=== PATIENT | female | born 1930 | race Caucasian/White ===

== ENCOUNTER 2018-07-10 13:33 | Inpatient (IN) | payer MEDICARE ==
[2018-07-10] MEDS ORDERED: Senokot S 8.6-50 MG TAB PO PRN (15:05)
[2018-07-10] MEDS ORDERED: Ondansetron PF 4 MG/2 ML Vial IVP PRN (15:05)
[2018-07-10] MEDS ORDERED: Acetaminophen 650 MG Suppository PR PRN (15:05)
[2018-07-10] MEDS ORDERED: Guaifenesin DM 100-10/5 ML UDCUP PO PRN (15:05)
[2018-07-10] MEDS ORDERED: Sodium Chloride 0.9% 1,000 ML IV SCH (15:05)
[2018-07-10] MEDS ORDERED: Metoprolol Tartrate 5 MG/5 ML VIAL ONE (15:10)
[2018-07-10 15:14] LABS: Troponin I 0.185 ng/mL (< 0.028)
[2018-07-10] MEDS ORDERED: Diltiazem 125 MG/25 ML ONE (15:29)
[2018-07-10] MEDS ORDERED: Diltiazem 125 MG in Sodium Chloride 0.9% 100 ML IVPB SCH (15:30)
[2018-07-10] MEDS ORDERED: LEVOFLOXACIN IVPB PRN (16:00)
[2018-07-10] MEDS ORDERED: VANCOMYCIN IVPB PRN (16:00)
--- NOTE | 2018-07-10 16:21 | HP ---
REASON FOR ADMISSION: Sepsis, urinary tract infection, possible aspiration with pneumonia, left pleural effusion, possible CVA, 5 beats of nonsustained ventricular tachycardia, demand ischemia. HISTORY OF PRESENTING ILLNESS: Please note, majority of this history is obtained by talking to the patient's and daughter who are here at bedside. The patient is wearing BiPAP mask and is a bit lethargic. Per , the patient was confused this morning and became unresponsive. She also had slurred speech. This happened around 7:30 in the morning. EMS was summoned and the patient was taken to [facility]. She has had multiple workups done at [facility]. She apparently had NIH of 15 on arrival there. She was also found to be septic and hypothermic with temperatures of 94 degrees on arrival rectal. The patient has had a CT angio brain done which did not reveal any acute stroke, but has findings of hemodynamically significant stenosis of right internal carotid artery. There was also apparent occlusion of the right vertebral artery at the base of the skull with reconstitution via collaterals. There is also questionable stenosis of the left vertebral artery at the base of the skull. The basilar artery is patent. The patient also was in acute respiratory failure with hypoxia with saturations dropping down to 80% and was placed on BiPAP prior to arrival here. Here off BiPAP, the patient is saturating 96% on 2 L nasal cannula. She has been aspirating from last 2 days and was not eating much per family. The patient is not moving both eyes beyond midline to the left. at bedside mentions that she has had eye surgery on the left, namely cataract and glaucoma surgeries and she also has pterygium on the right, but as far as he knows, she was moving her eye balls both sides. PAST MEDICAL AND SURGICAL HISTORY: Oral cancer/lip cancer with prior surgery including removal of the mass with removal of all the tooth in the upper jaw with some sort of maxillary resection as well. It is unclear if her tongue was operated on during the same procedure. She has had left breast cancer with mastectomy, has a steel plate in the right wrist, hysterectomy, appendectomy, hypertension, dyslipidemia. History of pulmonary embolus and was on Eliquis in 2016. CURRENT MEDICATIONS: The patient is on; 1. Lisinopril 20 mg daily. 2. Hydrochlorothiazide 25 mg daily. 3. Lopressor extended release 25 mg daily. ALLERGIES: ALLERGIC TO PENICILLIN. PERSONAL HISTORY: Does not abuse alcohol or drugs. She does not smoke. Lives with her . FAMILY HISTORY: The patient lives with her . She has outlived all her siblings, namely 4 other siblings. She is the oldest of the 5. She has 4 daughters. Code status, DNAR. This was discussed with and her daughter who are here at bedside. REVIEW OF SYSTEMS: To the extent possible was negative. Please note, this is very limited in view of the patient's lethargy. There is no apparent cough, but has been aspirating. No chest pain or palpitation. No abdominal pain or diarrhea or nausea. No prior massive stroke with paralysis or seizure disorder. Has had skin cancers in the past. No eczema at present. The patient has had history of breast cancer and has had left-sided mastectomy in the past. No bleeding as such. She has had prior history of pulmonary edema. No history of COPD or asthma. 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 The patient has osteoarthritis and has limited mobility. She ambulates with a rolling walker. PHYSICAL EXAMINATION: GENERAL: The patient is an 87-year-old female, who is currently not in any acute distress. VITAL SIGNS: Blood pressure 144/96, pulse 120 per minute, respiratory rate 26 per minute, temperature 94.3 degrees on arrival, currently 95.2 degrees rectal, saturating 96% on 2 L nasal cannula. NECK: Supple. No elevated JVD. EYES: Pupils are irregular on the left. Has pterygium on both eyes. The patient is not able to move beyond midline to the left side, likely has hemianopsia. In the left oral cavity, the patient has had puckering of the upper lips. Has no tooth on the upper jaw and the tongue is dry likely with shortened by prior surgery. Some congestion seen in the posterior pharynx. No obvious exudates seen. CARDIOVASCULAR: S1 and S2 heard. Tachycardic. No murmur. RESPIRATORY: Air entry 1+ bilateral. Scattered rhonchi plus bilateral. ABDOMEN: Soft. Bowel sounds heard. No tenderness, rigidity, or guarding. EXTREMITIES: Right lower extremity is slightly bigger than left lower extremity. No calf tenderness. VASCULAR: Peripheral pulses 1+ bilateral. No ischemic ulcerations or gangrene. CENTRAL NERVOUS SYSTEM: The patient appears to have left hemianopsia. She is able to move all four extremities. The patient is right-handed. Has some slow drifting of right upper extremity. The patient is 87 years old and has some generalized physical deconditioning. She is able to move her both lower extremities minimally. Babinski is downgoing both sides. Gait was not tested. PSYCHIATRIC: No obvious hallucinations or delusions. LABORATORY DATA: EKG done shows atrial fibrillation with RVR at 107 beats per minute. Has Q-waves seen in V1, V2, V3, V4, and has T inversions seen globally. A prior EKG which accompanies her chart done on August 02, 2017 shows sinus bradycardia at 58 beats per minute. There is Q-waves seen in V1 and V2, but no T inversions in that EKG. CT brain done shows atrophy and chronic ischemic change. No acute intracranial findings. CT angio of brain done shows hemodynamically significant stenosis in proximal right internal carotid artery. It is more than 70% stenosis by NASCET criteria. There is also apparent occlusion of right vertebral artery at the base of the skull with reconstitution via collaterals, though there is also question of stenosis of the left vertebral artery at the base of the skull. The basilar artery is patent. Chest x-ray done shows left pleural effusion, likely right middle lobe infiltrate. White count of 17, H and H 17 and 49, platelet count 472, with 89% neutrophils, MCV is 88. PT, INR, PTT within normal limits. Potassium is 3.0, serum bicarb 23, BUN 7, creatinine 0.6, serum glucose 206. Lactic acid 3.8. Troponin I is indeterminate, peaking up to 0.18. BNP 636. Liver enzymes within normal limits. Albumin is 4.0. UA shows moderate leukocyte esterase, 21 to 50 wbc's, and 2+ bacteria. CLINICAL IMPRESSION AND PLAN: The patient will be admitted to telemetry for sepsis, pneumonia, urinary tract infection, possible cerebrovascular accident, carotid stenosis, possible aspiration, hypokalemia, nonsustained ventricular tachycardia , atrial fibrillation with rapid ventricular response. We will obtain echo with 2D Doppler for LV function. Ultrasound of both lower extremities to rule out deep vein thrombosis. She will be placed on Cardizem drip 5 mg an hour. We will also place her on Lopressor 25 mg twice daily. The patient will be kept n.p.o. except for medications until speech clears her. She will be on normal saline at 50 mL per hour. Blood, urine, and sputum cultures will be obtained. The patient will be on broad-spectrum cefepime, Levaquin, and vancomycin until cultures are back. Her overall prognosis is guarded. The patient has had prior lip surgery with oral reconstruction done as well and it is unclear if she is aspirating. We will confirm the same. Code status was discussed with the patient, the patient's and her daughter who are at bedside and they agreed for DNAR. We will obtain consultation with Dr. Fan for Pulmonology, Dr. Wahl who is correspondence representative for Neurology in view of left hemianopsia to rule out CVA and Dr. Ashley for EKG changes and indeterminate troponin. Job ID: [id number] [facility]
--- NOTE | 2018-07-10 17:13 | ULT ---
RIGHT LOWER EXTREMITY VENOUS DOPPLER ULTRASOUND: Date: 07-10-18 Comparison: None. History: Right lower extremity swelling, assess for DVT. Technique: Multiplanar grayscale sonographic imaging of the venous structures of the right lower extr emity obtained with color flow and spectral analysis. FINDINGS: The right common femoral vein and greater saphenous vein are patent. The right profunda femoral vein and femoral vein are patent. There is only compression of the right p opliteal vein with internal echogenic material consistent with deep venous thrombosis of the right po pliteal vein. There is also thrombus seen within the right posterior tibial vein. IMPRESSION: 1. Deep venous thrombosis involving the right popliteal vein with extension into the right posterior tibial vein. 2. The property coordinator reports that this information was relayed to Dr. Troy at the time of the examinati on. POS: ADRI
[2018-07-10 18:15] LABS: Troponin I 0.235 ng/mL (< 0.028)
[2018-07-10] MEDS: Potassium Chloride 20 MEQ TAB PO SCH (18:43)
[2018-07-10 19:38] LABS: Lactic Acid 2.8 mmol/L (0.5-2.2)
[2018-07-10] MEDS ORDERED: Vancomycin HCl 1 GM in Sodium Chloride 0.9% 250 ML 300 ML IVPB SCH (21:00)
[2018-07-10] MEDS ORDERED: Metoprolol Tartrate 25 MG TAB PO SCH (21:00)
[2018-07-10] MEDS ORDERED: Cefepime 1 GM in Sodium Chloride 0.9% 100 ML IVPB SCH (21:00)
[2018-07-10 22:47] LABS: Troponin I 0.307 ng/mL (< 0.028)
--- NOTE | 2018-07-11 02:49 | CON ---
DATE OF CONSULTATION: 07/10/2018 HISTORY OF PRESENT ILLNESS: This is an 87-year-old female admitted with altered mental status. She had suspected urinary tract infection. CT angiography of her head demonstrated disease in her right internal carotid artery, which I estimate to be about 70%. PAST MEDICAL HISTORY: In regards to her carotid artery is significant for oral cancer several years ago that resulted in partial tongue resection, maxillary resection, and radiation therapy. Related to this, she may have had some problems with aspiration. Hypertension, dyslipidemia, and history of pulmonary embolus. PAST SURGICAL HISTORY: Otherwise includes previous breast cancer about 8 years ago with a mastectomy, right wrist fracture, hysterectomy and appendectomy. SOCIAL HISTORY: The patient has never smoked. She does not drink. She lives at home with her and daughter. PHYSICAL EXAMINATION: GENERAL: On examination, she is resting comfortably on 2 L nasal cannula and will nod her head, but does not really respond otherwise. NECK: Skin changes of radiation therapy, as well as possible neck dissection on the left. I do not appreciate any carotid bruits. LUNGS: Clear to auscultation. CARDIAC: No murmurs. Regular rate and rhythm. ABDOMEN: Soft and nontender. EXTREMITIES: I do not appreciate any popliteal or pedal pulses, but she does have femoral pulses. She has [id number] edema in one leg. Motor function is grossly intact. At this time, the patient has about a 70% stenosis of the right internal carotid artery. She also has some vertebral artery disease. Given her radiation therapy, surgical intervention for her carotid stenosis would not be possible and she would require carotid stenting. In regards to this, I do not think she is symptomatic from her carotid artery disease and would avoid any intervention for her carotid stenosis at this time. Job ID: [id number]
[2018-07-11 03:41] LABS: #Lymphocytes 0.5 thou/uL (1.20-3.40); #Monocytes 0.7 thou/uL (0.11-0.59); #Neutrophils 7.6 thou/uL (1.40-6.50); %Eosinophils 0.1 % (0.0-10.0); %Lymphocytes 5.1 % (21.0-51.0); %Monocytes 7.8 % (0.0-10.0); %Neutrophils 86.9 % (42.0-75.0); Hemoglobin 15.5 g/dL (12.0-16.0); Mean Corpuscular HGB CONC 33.6 g/dL (32.0-36.0); Mean Corpuscular Hemoglobin 30.7 pg (27.0-31.0); Mean Corpuscular Volume 91.3 fL (78.0-98.0); Mean Platelet Volume 6.7 fL (7.4-10.4); Platelet Count 389 thou/uL (130-400); RBC Distribution Width 11.7 % (11.5-14.5); Red Blood Cell (RBC) Count 5.05 mill/uL (4.20-5.40); White Blood Cell (WBC) Count 8.8 thou/uL (4.8-10.8)
[2018-07-11 04:00] LABS: Anion Gap 16 mmol/L (10-20); BUN (Urea Nitrogen) 8 mg/dL (9.8-20.1); Calc. Creatinine Clearance 0 mL/min (70-130); Calcium 9.1 mg/dL (7.8-10.44); Carbon Dioxide 20 mmol/L (23-31); Chloride 102 mmol/L (98-107); Estimated GFR-MDRD Greater than 90; Glucose 166 mg/dL (83-110); Magnesium 1.8 mg/dL (1.6-2.6); Potassium 3.9 mmol/L (3.5-5.1); Sodium 134 mmol/L (136-145)
[2018-07-11 07:13] LABS: Troponin I 0.224 ng/mL (< 0.028)
[2018-07-11] MEDS ORDERED: Enoxaparin Sodium 40 MG/0.4 ML SYRINGE SC SCH (09:00)
[2018-07-11] MEDS ORDERED: Metoprolol Tartrate 25 MG TAB ONE (10:48)
[2018-07-11] MEDS ORDERED: Famotidine/PF 20 mg/2ml Vial ONE (10:48)
[2018-07-11] MEDS ORDERED: Potassium Chloride 20 MEQ TAB ONE (10:49)
[2018-07-11] MEDS: Famotidine/PF 20 mg/2ml Vial SLOW IVP SCH ×3 (11:00→21:56)
--- NOTE | 2018-07-11 11:13 | PDOC.PN ---
- Subjective Encounter Start Date: 07/11/18 Encounter Start Time: 10:30 Subjective: awake, no sob or palp -: no c/o chest pain, is more awake this morning -: , 2 daughters at bedside - Objective Resuscitation Status - Order Detail: 07/10/18 14:58 Resuscitation Status Routine Resuscitation Status: PRTL: Chem only Discussed with: d/w and daughter at bedside MAR Reviewed: Yes Result Diagrams: 07/11/18 03:33 07/11/18 03:33 Phys Exam - Physical Examination HEENT: PERRLA, sclera anicteric Neck: no JVD, supple Respiratory: no wheezing rales+ Cardiovascular: no significant murmur, irregular Gastrointestinal: soft, non-tender, no distention, positive bowel sounds Musculoskeletal: pulses present, edema present Neurological: non-focal, moves all 4 limbs Dx/Plan (1) Sepsis Code(s): A41.9 - SEPSIS, UNSPECIFIED ORGANISM Status: Acute Qualifiers: Sepsis type: sepsis due to unspecified organism Qualified Code(s): A41.9 - Sepsis, unspecified organism (2) Acute IN Code(s): I21.9 - ACUTE MYOCARDIAL INFARCTION, UNSPECIFIED Status: Acute Qualifiers: Myocardial infarction type: ST elevation myocardial infarction (3) UTI (urinary tract infection) Status: Acute Qualifiers: Urinary tract infection type: acute cystitis Hematuria presence: without hematuria Qualified Code(s): N30.00 - Acute cystitis without hematuria (4) PNA (pneumonia) Code(s): J18.9 - PNEUMONIA, UNSPECIFIED ORGANISM Status: Acute Qualifiers: Pneumonia type: due to unspecified organism (5) Afib Code(s): I48.91 - UNSPECIFIED ATRIAL FIBRILLATION Status: Acute Qualifiers: Atrial fibrillation type: paroxysmal Qualified Code(s): I48.0 - Paroxysmal atrial fibrillation (6) CVA (cerebral vascular accident) Code(s): I63.9 - CEREBRAL INFARCTION, UNSPECIFIED Status: Suspected (7) DVT (deep venous thrombosis) Code(s): I82.409 - ACUTE EMBOLISM AND THOMBOS UNSP DEEP VN UNSP LOWER EXTREMITY Status: Acute Qualifiers: DVT location: lower extremity Affected thrombotic vein of extremity: popliteal Chronicity: acute Laterality: right Qualified Code(s): I82.431 - Acute embolism and thrombosis of right popliteal vein (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(s): Z85.819 - PRSNL HX OF MALIG NEOPLM OF UNSP SITE LIP,ORAL CAV,& PHARYNX Status: Resolved Comment: prior surgery for the same - Plan is on lovenox 40mg sc q12h, asp, lopressor, gentle iv hydration -: dc cardizem drip, afib is rate controlled now -: on levaq and vanc -: await urine culture results, blood x4 -ve (has contaminants) -: d/w and economic research assistant for cardiology, will repeat tropx2 * . gave an update to and family at bedside. Prognosis guarded. May tx to telemetry. Review of Systems - Medications/Allergies Allergies/Adverse Reactions: Allergies Allergy/AdvReac Type Severity Reaction Status Date / Time Penicillins Allergy Severe Anaphylaxis Verified 07/13/16 19:36 Medications: Current Medications Acetaminophen (Tylenol) 650 mg PO Q4H PRN PRN Reason: Headache/Fever/Mild Pain (1-3) Acetaminophen (Tylenol) 650 mg SD Q4H PRN PRN Reason: Headache/Fever/Mild Pain (1-3) Aspirin (Aspirin Chewable) 81 mg PO DAILY [facility] Enoxaparin Sodium (Lovenox) 40 mg SC Q12HR JULIETH Famotidine (Pepcid) 20 mg SLOW IVP Q12HR JULIETH Guaifenesin/Dextromethorphan (Robitussin Dm) 15 ml PO Q4H PRN PRN Reason: Cough Levofloxacin 500 mg/ Device 100 mls @ 100 mls/hr IVPB 1600 JULIETH Vancomycin HCl 750 mg/ Sodium (Chloride) 250 mls @ 250 mls/hr IVPB Q24HR@2100 [facility] Magnesium Oxide (Magnesium Oxide) 400 mg PO BID JULIETH Metoprolol Tartrate (Lopressor) 25 mg PO BID [facility] Miscellaneous Medication (Pharmacy To Dose) 1 each IVPB PRN PRN PRN Reason: Pharmacy to dose Ondansetron HCl (Zofran) 4 mg IVP Q6H PRN PRN Reason: Nausea/Vomiting Potassium Chloride (K-Dur) 40 meq PO BID-[facility] Last Admin: 07/10/18 18:43 Dose: Not Given Senna/Docusate Sodium (Senokot S) 2 tab PO BID PRN PRN Reason: Constipation
[2018-07-11] MEDS ORDERED: Nitroglycerin 2% Ointment 1 INCH/1 GM Packet ONE (11:55)
[2018-07-11] MEDS ORDERED: Enoxaparin Sodium 40 MG/0.4 ML SYRINGE ONE (12:10)
[2018-07-11] MEDS ORDERED: Metoprolol Tartrate 5 MG/5 ML VIAL ONE (12:10)
[2018-07-11] MEDS ORDERED: Aspirin 300 MG Suppository ONE (12:55)
[2018-07-11 13:17] LABS: CKMB 1.9 ng/mL (0-6.6)
[2018-07-11] MEDS: Magnesium Oxide 400 MG TAB PO SCH ×3 (14:11→23:33)
[2018-07-11] MEDS: Potassium Chloride 20 MEQ TAB PO SCH ×2 (14:12→16:59)
[2018-07-11] MEDS: Metoprolol Tartrate 5 MG/5 ML VIAL IVP SCH ×2 (14:12→20:43)
[2018-07-11] MEDS: Nitroglycerin 2% Ointment 1 INCH/1 GM Packet TOP SCH ×2 (14:12→21:55)
--- NOTE | 2018-07-11 15:35 | MRI ---
BRAIN MRI WITHOUT CONTRAST: Date: 07/11/18 INDICATION: Left hemianopsia with slurred speech and altered mental status. FINDINGS: There is a moderate size region of restricted diffusion involving the inferior and posterior right ce rebellar hemisphere, as well as the right lateral aspect of the medulla. There is motion artifact whi ch limits assessment. Moderate global atrophy and chronic ischemic disease present. There is no midli ne shift. Mild compensatory dilatation of the ventricular system is present. No hemorrhagic susceptib ility is seen within the brain parenchyma. IMPRESSION: 1. Moderate sized acute right PICA distribution infarction. 2. Parenchymal atrophy and moderate chronic ischemic disease. POS: ADRI
[2018-07-11] MEDS: Enoxaparin Sodium 40 MG/0.4 ML SYRINGE SC SCH ×3 (16:03→21:56)
[2018-07-11] MEDS: Vancomycin HCl 750 MG in Sodium Chloride 0.9% 250 ML 250 ML IVPB SCH ×2 (16:04→21:55)
[2018-07-11 16:33] VITALS: BMI 21.8
--- NOTE | 2018-07-12 00:27 | CON ---
DATE OF CONSULTATION: 07/11/2018 IMPRESSION: 1. 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 2. A 70% right carotid stenosis. 3. History of facial cancer requiring radiation therapy. PLAN: 1. Aspirin 325 mg per day. 2. Lipitor. 3. assisted transfer for inpatient therapy. HISTORY OF PRESENT ILLNESS: Ms. Zamorano is an 87-year-old woman who was living at home with her . Her daughter notes that over the last month, she has been steadily getting weaker. She is having more trouble getting up and around the house with her walker. She spends most of her time quite sedentary. She has abrupt change in her neurologic status. She was brought in to the hospital for evaluation. She was noted to have some visual field difficulties and mildly diminished level of consciousness, started to have some right-sided weakness. Subsequent scans revealed evidence of a right posterior cerebral artery stroke that was acute. She had not been on aspirin or anticoagulants in quite some time. She has a history of some recent falls on several occasions. She has been followed by Dr. Copeland. PAST MEDICAL HISTORY: 1. Intermittent atrial fibrillation. 2. Facial cancer. 3. Blood pressure. MEDICATIONS: Medication list was reviewed. SOCIAL HISTORY: Her and her live independently. She does not smoke or drink. FAMILY HISTORY: Noncontributory. REVIEW OF SYSTEM: Difficult due to her hearing loss. PHYSICAL EXAMINATION: GENERAL: She is a frail-appearing elderly lady in no acute distress. VITAL SIGNS: Blood pressure 160/95, pulse 80, respirations 20, temperature 95.2. HEENT: Pupils are equal and minimally reactive. Conjunctivae clear. Oropharynx clear. Her upper lip is surgically partially missing. NECK: Supple. No lymphadenopathy noted. EXTREMITIES: No cyanosis. NEUROLOGIC: She appears a bit drowsy, but would awaken and was cooperative. I can get her to follow commands. She was a bit difficult to understand due to her facial issues. There did not appear to be any gross asymmetry. Motor exam showed good antigravity strength in both upper extremities. She had good instrument setter strength bilaterally. She seemed to localize well visually. She had intact sensation. No tremor. Dysmetria was present. She had some symmetric weakness in both lower extremities. Plantar response was upgoing on the right and downgoing on the left. IMAGING STUDIES: EKG is showing some intermittent atrial fibrillation. SUMMARY: This is an elderly lady that suffered a left posterior cerebral artery stroke. One of the vertebrals is occluded, the right carotid 70% narrowed, but she is a poor surgical candidate. She is also a poor candidate for anticoagulation due to her gait instability. Her echo did show a depressed ejection fraction of 20% to 25%. Overall, the risk to benefit ratio, I would go with antiplatelet therapy. She has been dwindling lightly and becoming more immobile. Therefore, I would suggest some inpatient therapy to try to build her strength. Job ID: [id number]
[2018-07-12] MEDS: Metoprolol Tartrate 5 MG/5 ML VIAL IVP SCH ×3 (03:43→20:43)
[2018-07-12 06:07] LABS: Cardiac Risk 3.4 (Less than 4.5)
[2018-07-12] MEDS: Nitroglycerin 2% Ointment 1 INCH/1 GM Packet TOP SCH ×3 (07:26→20:43)
[2018-07-12] MEDS: Potassium Chloride 20 MEQ TAB PO SCH ×2 (08:16→15:14)
[2018-07-12] MEDS: Magnesium Oxide 400 MG TAB PO SCH ×2 (08:17→20:46)
[2018-07-12] MEDS: Aspirin 300 MG Suppository PR SCH (08:21)
[2018-07-12] MEDS: Famotidine/PF 20 mg/2ml Vial SLOW IVP SCH ×2 (08:21→20:43)
[2018-07-12] MEDS: Enoxaparin Sodium 40 MG/0.4 ML SYRINGE SC SCH ×2 (08:22→20:46)
[2018-07-12 08:52] LABS: #Lymphocytes 0.5 thou/uL (1.20-3.40); #Monocytes 1.3 thou/uL (0.11-0.59); %Eosinophils 0.1 % (0.0-10.0); %Monocytes 10.1 % (0.0-10.0); %Neutrophils 85.7 % (42.0-75.0); Hemoglobin 15.8 g/dL (12.0-16.0); Mean Corpuscular HGB CONC 30.3 g/dL (32.0-36.0); Mean Corpuscular Hemoglobin 28.9 pg (27.0-31.0); Mean Corpuscular Volume 95.2 fL (78.0-98.0); Mean Platelet Volume 7.2 fL (7.4-10.4); Platelet Count 355 thou/uL (130-400); Red Blood Cell (RBC) Count 5.45 mill/uL (4.20-5.40); White Blood Cell (WBC) Count 12.8 thou/uL (4.8-10.8)
[2018-07-12 08:59] LABS: PTT 29.5 SEC (22.9-36.1); Prothrombin Time 13.6 SEC (12.0-14.7)
[2018-07-12 09:15] LABS: Anion Gap 15 mmol/L (10-20); BUN (Urea Nitrogen) 14 mg/dL (9.8-20.1); Calc. Creatinine Clearance 54 mL/min (70-130); Calcium 9.5 mg/dL (7.8-10.44); Carbon Dioxide 20 mmol/L (23-31); Chloride 104 mmol/L (98-107); Estimated GFR-MDRD 85; Glucose 125 mg/dL (83-110); Potassium 4.7 mmol/L (3.5-5.1); Sodium 134 mmol/L (136-145)
--- NOTE | 2018-07-12 09:31 | CON ---
DATE OF CONSULTATION: HISTORY OF PRESENT ILLNESS: The patient is an 87-year-old woman, who presented with altered mental status. The patient's family states that she had a myocardial infarction when she was very young. The patient also has apparently have a history of valvular heart disease. 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 She has had difficulty eating. She was recently diagnosed with the urinary tract infection. The patient also has a history of a pulmonary embolus and has been on chronic anticoagulation therapy. The patient presents with acute onset of altered mental status. She became acutely confused and lethargic. The patient was brought to the emergency room for further evaluation. The patient was noted to have an abnormal electrocardiogram. PAST MEDICAL HISTORY: 1. History of ENT carcinoma. 2. Hypertension. 3. History of pulmonary embolism. PAST SURGICAL HISTORY: Mastectomy, appendectomy, and hysterectomy. SOCIAL HISTORY: Nonsmoker. ALLERGIES: PENICILLIN. REVIEW OF SYSTEMS: Not obtainable. MEDICATIONS: 1. Potassium 10 daily. 2. Lopressor 100 mg daily. 3. Lisinopril 20 daily. 4. Hydrochlorothiazide 25 daily. 5. Eliquis 5 b.i.d. 6. Norvasc 10 daily. PHYSICAL EXAMINATION: GENERAL: This is a cachectic woman, in no acute distress. She was confused, in no acute distress. Ill-appearing woman, who is confused. VITAL SIGNS: Blood pressure 104/60 and heart rate is 70 and irregular. NECK: Showed no jugular venous distention. LUNGS: Clear to auscultation. HEART: Irregular rate and rhythm. Normal S1 and S2. ABDOMEN: Nondistended. EXTREMITIES: Showed trace edema. Swollen right lower extremity. LABORATORY DATA: White blood cell count 8.8, hemoglobin 15.5, hematocrit 46.2, and platelets 389. Sodium 134, potassium 3.9, chloride 102, bicarb 20, BUN 8, creatinine 0.6, and glucose is 90. Troponin 0.224. Her EKG revealed atrial fibrillation with a marked ST-T wave abnormality suggestive of ischemia or possible cerebrovascular accident with a prolonged QT interval. IMPRESSION AND PLAN: 1. Altered mental status, possibly cerebrovascular accident. 2. Possible sepsis. 3. Atrial fibrillation. 4. Abnormal electrocardiogram. 5. Hypertension. 6. Cachexia. 7. History of ENT carcinoma. 8. Deep venous thrombosis. This unfortunate woman has presented with altered mental status. She may have suffered a cerebrovascular accident. Her EKG is either suggestive of an acute cerebrovascular accident or severe ischemic heart disease with her cachexia and overall poor health. The patient be treated medically. The patient has been given Lovenox and aspirin. She has also been started on IV beta isidro therapy. The patient's prognosis is very guarded. We will follow this patient with you through her hospitalization. Job ID: [id number] MTDD
--- NOTE | 2018-07-12 10:36 | PDOC.PN ---
- Subjective Encounter Start Date: 07/12/18 Encounter Start Time: 08:00 Subjective: awake, responds to verbal questions -: no sob or chest pain - Objective Resuscitation Status - Order Detail: 07/10/18 14:58 Resuscitation Status Routine Resuscitation Status: PRTL: Chem only Discussed with: d/w and daughter at bedside MAR Reviewed: Yes Vital Signs & Weight: Vital Signs (12 hours) Temp Pulse Resp BP Pulse Ox 07/12/18 08:00 97.5 F L 80 20 164/106 H 100 07/12/18 04:00 97.4 F L 82 19 162/80 H 100 07/12/18 00:00 97.5 F L 79 19 164/100 H 100 Weight Weight 127 lb I&O: 07/11/18 07/12/18 07/13/18 06:59 06:59 06:59 Intake Total 250 Output Total 200 Balance 50 Result Diagrams: 07/12/18 08:40 07/12/18 08:40 Additional Labs: Accuchecks 07/11/18 16:51 POC Glucose 120 H Phys Exam - Physical Examination HEENT: PERRLA, sclera anicteric Neck: no JVD, supple Respiratory: no wheezing, no rales Cardiovascular: no significant murmur, irregular Gastrointestinal: soft, non-tender, positive bowel sounds Musculoskeletal: no edema, pulses present right hemiparesis, dysphagia Dx/Plan (1) CVA (cerebral vascular accident) Code(s): I63.9 - CEREBRAL INFARCTION, UNSPECIFIED Status: Acute Qualifiers: Laterality of affected vessel: right Comment: right cerebellar cva with brainstem infarct (2) Sepsis Code(s): A41.9 - SEPSIS, UNSPECIFIED ORGANISM Status: Acute Qualifiers: Sepsis type: sepsis due to unspecified organism Qualified Code(s): A41.9 - Sepsis, unspecified organism (3) Acute [place] Code(s): I21.9 - ACUTE MYOCARDIAL INFARCTION, UNSPECIFIED Status: Suspected Qualifiers: Myocardial infarction type: non-ST elevation myocardial infarction Qualified Code(s): I21.4 - Non-ST elevation (NSTEMI) myocardial infarction (4) UTI (urinary tract infection) Status: Acute Qualifiers: Urinary tract infection type: acute cystitis Hematuria presence: without hematuria Qualified Code(s): N30.00 - Acute cystitis without hematuria (5) PNA (pneumonia) Code(s): J18.9 - PNEUMONIA, UNSPECIFIED ORGANISM Status: Acute Qualifiers: Pneumonia type: due to unspecified organism (6) Afib Code(s): I48.91 - UNSPECIFIED ATRIAL FIBRILLATION Status: Acute Qualifiers: Atrial fibrillation type: paroxysmal Qualified Code(s): I48.0 - Paroxysmal atrial fibrillation (7) DVT (deep venous thrombosis) Code(s): I82.409 - ACUTE EMBOLISM AND THOMBOS UNSP DEEP VN UNSP LOWER EXTREMITY Status: Acute Qualifiers: DVT location: lower extremity Affected thrombotic vein of extremity: popliteal Chronicity: acute Laterality: right Qualified Code(s): I82.431 - Acute embolism and thrombosis of right popliteal vein (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(s): Z85.819 - PRSNL HX OF MALIG NEOPLM OF UNSP SITE LIP,ORAL CAV,& PHARYNX Status: Resolved Comment: prior surgery for the same (9) CHF (congestive heart failure), NYHA class III Code(s): I50.9 - HEART FAILURE, UNSPECIFIED Status: Acute Qualifiers: Congestive heart failure type: combined Congestive heart failure chronicity : acute Qualified Code(s): I50.41 - Acute combined systolic (congestive) and diastolic (congestive) heart failure Comment: ef of 25% - Plan await speech to clear for swallowing -: family to discuss peg Vs hospice eval -: will need skilled placement depending on above decision -: is on asp rectal, lopressor iv, nitropaste -: levaquin and vanc, urine cs is contaminated, blood cs x2 -ve * . d/w daughter at bedside in detail. PT/OT eval gentle iv hydration, watch for overload. Prognosis guarded. Had poor functional status prior to hospitalization. Review of Systems - Medications/Allergies Allergies/Adverse Reactions: Allergies Allergy/AdvReac Type Severity Reaction Status Date / Time Penicillins Allergy Severe Anaphylaxis Verified 07/13/16 19:36 Medications: Current Medications Acetaminophen (Tylenol) 650 mg PO Q4H PRN PRN Reason: Headache/Fever/Mild Pain (1-3) Acetaminophen (Tylenol) 650 mg [place] Q4H PRN PRN Reason: Headache/Fever/Mild Pain (1-3) Aspirin (Aspirin) 300 mg AK DAILY [facility] Last Admin: 07/12/18 08:21 Dose: 300 mg Enoxaparin Sodium (Lovenox) 40 mg SC Q12HR [facility] Last Admin: 07/12/18 08:22 Dose: 40 mg Famotidine (Pepcid) 20 mg SLOW IVP Q12HR [facility] Last Admin: 07/12/18 08:21 Dose: 20 mg Guaifenesin/Dextromethorphan (Robitussin Dm) 15 ml PO Q4H PRN PRN Reason: Cough Levofloxacin 500 mg/ Device 100 mls @ 100 mls/hr IVPB 1600 [facility] Last Admin: 07/11/18 16:52 Dose: 100 mls Vancomycin HCl 750 mg/ Sodium (Chloride) 250 mls @ 250 mls/hr IVPB Q24HR@2100 [facility] Last Admin: 07/11/18 21:55 Dose: 250 mls Magnesium Oxide (Magnesium Oxide) 400 mg PO BID [facility] Last Admin: 07/12/18 08:17 Dose: Not Given Metoprolol Tartrate (Lopressor) 5 mg IVP Q8H [facility] Last Admin: 07/12/18 03:43 Dose: 5 mg Miscellaneous Medication (Pharmacy To Dose) 1 each IVPB PRN PRN PRN Reason: Pharmacy to dose Nitroglycerin (Nitro-Bid 2% Ointment) 0.5 inch TOP Q8HR [facility] Last Admin: 07/12/18 07:26 Dose: 0.5 inch Ondansetron HCl (Zofran) 4 mg IVP Q6H PRN PRN Reason: Nausea/Vomiting Last Admin: 07/11/18 23:42 Dose: 4 mg Potassium Chloride (K-Dur) 40 meq PO BID-[facility] Last Admin: 07/12/18 08:16 Dose: Not Given Senna/Docusate Sodium (Senokot S) 2 tab PO BID PRN PRN Reason: Constipation Sodium Chloride (Flush - Normal Saline) 10 ml IVF PRN PRN PRN Reason: Saline Flush Last Admin: 07/12/18 03:44 Dose: 10 ml
[2018-07-12] MEDS: Enalaprilat Dihydrate 1.25 MG/ML VIAL SLOW IVP SCH ×2 (18:24→23:19)
[2018-07-12 20:43] LABS: Vancomycin, Trough 7.5 ug/mL
[2018-07-12] MEDS: Vancomycin HCl 750 MG in Sodium Chloride 0.9% 250 ML 250 ML IVPB SCH (20:46)
[2018-07-12] MEDS ORDERED: Vancomycin HCl 500 MG in Sodium Chloride 0.9% 100 ML IVPB SCH (21:15)
[2018-07-13] MEDS: Metoprolol Tartrate 5 MG/5 ML VIAL IVP SCH ×3 (04:14→21:44)
[2018-07-13] MEDS: Nitroglycerin 2% Ointment 1 INCH/1 GM Packet TOP SCH ×3 (05:31→22:32)
[2018-07-13] MEDS: Enalaprilat Dihydrate 1.25 MG/ML VIAL SLOW IVP SCH ×3 (05:31→18:03)
[2018-07-13] MEDS: Aspirin 300 MG Suppository PR SCH (08:55)
[2018-07-13] MEDS: Famotidine/PF 20 mg/2ml Vial SLOW IVP SCH ×2 (09:01→21:43)
[2018-07-13] MEDS: Potassium Chloride 20 MEQ TAB PO SCH ×2 (09:01→17:00)
[2018-07-13] MEDS: Enoxaparin Sodium 40 MG/0.4 ML SYRINGE SC SCH (09:01)
[2018-07-13] MEDS: Magnesium Oxide 400 MG TAB PO SCH ×2 (09:01→21:44)
--- NOTE | 2018-07-13 10:48 | PDOC.PN ---
- Subjective Encounter Start Date: 07/13/18 Encounter Start Time: 10:00 Subjective: awake, follows verbal stimuli -: at bedside -: moves all extremities, says she is hungry - Objective Resuscitation Status - Order Detail: 07/10/18 14:58 Resuscitation Status Routine Resuscitation Status: PRTL: Chem only Discussed with: d/w and daughter at bedside MAR Reviewed: Yes Vital Signs & Weight: Vital Signs (12 hours) Temp Pulse Resp BP BP Pulse Ox 07/13/18 08:00 96.8 F L 83 16 152/93 H 100 07/13/18 05:31 168/99 H 07/13/18 03:35 96.4 F L 76 13 167/109 H 100 07/13/18 00:00 96.0 F L 76 19 172/109 H 100 07/12/18 23:19 172/100 H Weight Admit Weight 127 lb Weight 127 lb I&O: 07/12/18 07/13/18 07/14/18 06:59 06:59 06:59 Intake Total 416 4000 Output Total 325 200 Balance 91 3800 Result Diagrams: 07/12/18 08:40 07/12/18 08:40 Phys Exam - Physical Examination HEENT: PERRLA dry mucosa+ Neck: no JVD, supple Respiratory: no wheezing, no rales Cardiovascular: RRR, no significant murmur Gastrointestinal: soft, non-tender, positive bowel sounds Musculoskeletal: no edema, pulses present Neurological: moves all 4 limbs Psychiatric: normal affect, A&O x 3 Dx/Plan (1) CVA (cerebral vascular accident) Code(s): I63.9 - CEREBRAL INFARCTION, UNSPECIFIED Status: Acute Qualifiers: Laterality of affected vessel: right Comment: right cerebellar cva with brainstem infarct (2) Sepsis Code(s): A41.9 - SEPSIS, UNSPECIFIED ORGANISM Status: Acute Qualifiers: Sepsis type: sepsis due to unspecified organism Qualified Code(s): A41.9 - Sepsis, unspecified organism (3) Acute [place] Code(s): I21.9 - ACUTE MYOCARDIAL INFARCTION, UNSPECIFIED Status: Suspected Qualifiers: Myocardial infarction type: non-ST elevation myocardial infarction Qualified Code(s): I21.4 - Non-ST elevation (NSTEMI) myocardial infarction (4) UTI (urinary tract infection) Status: Acute Qualifiers: Urinary tract infection type: acute cystitis Hematuria presence: without hematuria Qualified Code(s): N30.00 - Acute cystitis without hematuria (5) PNA (pneumonia) Code(s): J18.9 - PNEUMONIA, UNSPECIFIED ORGANISM Status: Acute Qualifiers: Pneumonia type: due to unspecified organism (6) Afib Code(s): I48.91 - UNSPECIFIED ATRIAL FIBRILLATION Status: Acute Qualifiers: Atrial fibrillation type: paroxysmal Qualified Code(s): I48.0 - Paroxysmal atrial fibrillation (7) DVT (deep venous thrombosis) Code(s): I82.409 - ACUTE EMBOLISM AND THOMBOS UNSP DEEP VN UNSP LOWER EXTREMITY Status: Acute Qualifiers: DVT location: lower extremity Affected thrombotic vein of extremity: popliteal Chronicity: acute Laterality: right Qualified Code(s): I82.431 - Acute embolism and thrombosis of right popliteal vein (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(s): Z85.819 - PRSNL HX OF MALIG NEOPLM OF UNSP SITE LIP,ORAL CAV,& PHARYNX Status: Resolved Comment: prior surgery for the same (9) CHF (congestive heart failure), NYHA class III Code(s): I50.9 - HEART FAILURE, UNSPECIFIED Status: Acute Qualifiers: Congestive heart failure type: combined Congestive heart failure chronicity : acute Qualified Code(s): I50.41 - Acute combined systolic (congestive) and diastolic (congestive) heart failure Comment: ef of 25% - Plan d/w at bedside and GeraRachael salty over phone -: family would like to proceed with peg tube and skilled placement -: is on levaquin, rectal asp, lopressor and enalapril iv -: PT/OT to mobilize as tolerated -: GI consult for peg tube * . Review of Systems - Medications/Allergies Allergies/Adverse Reactions: Allergies Allergy/AdvReac Type Severity Reaction Status Date / Time Penicillins Allergy Severe Anaphylaxis Verified 07/13/16 19:36 Medications: Current Medications Acetaminophen (Tylenol) 650 mg PO Q4H PRN PRN Reason: Headache/Fever/Mild Pain (1-3) Acetaminophen (Tylenol) 650 mg [place] Q4H PRN PRN Reason: Headache/Fever/Mild Pain (1-3) Aspirin (Aspirin) 300 mg [place] DAILY [facility] Last Admin: 07/13/18 08:55 Dose: 300 mg Enalaprilat (Vasotec) 1.25 mg SLOW IVP Q6HR [facility] Last Admin: 07/13/18 05:31 Dose: 1.25 mg Enoxaparin Sodium (Lovenox) 40 mg SC Q12HR [facility] Last Admin: 07/13/18 09:01 Dose: 40 mg Famotidine (Pepcid) 20 mg SLOW IVP Q12HR [facility] Last Admin: 07/13/18 09:01 Dose: 20 mg Guaifenesin/Dextromethorphan (Robitussin Dm) 15 ml PO Q4H PRN PRN Reason: Cough Levofloxacin 500 mg/ Device 100 mls @ 100 mls/hr IVPB 1600 [facility] Last Admin: 07/12/18 15:14 Dose: 100 mls Vancomycin HCl 1.25 gm/ Sodium (Chloride) 250 mls @ 166.667 mls/hr IVPB 2100 [facility] Magnesium Oxide (Magnesium Oxide) 400 mg PO BID [facility] Last Admin: 07/13/18 09:01 Dose: Not Given Metoprolol Tartrate (Lopressor) 5 mg IVP Q8H [facility] Last Admin: 07/13/18 04:14 Dose: 5 mg Miscellaneous Medication (Pharmacy To Dose) 1 each IVPB PRN PRN PRN Reason: Pharmacy to dose Nitroglycerin (Nitro-Bid 2% Ointment) 0.5 inch TOP Q8HR [facility] Last Admin: 07/13/18 05:31 Dose: 0.5 inch Ondansetron HCl (Zofran) 4 mg IVP Q6H PRN PRN Reason: Nausea/Vomiting Last Admin: 07/11/18 23:42 Dose: 4 mg Potassium Chloride (K-Dur) 40 meq PO BID-[facility] Last Admin: 07/13/18 09:01 Dose: Not Given Senna/Docusate Sodium (Senokot S) 2 tab PO BID PRN PRN Reason: Constipation Sodium Chloride (Flush - Normal Saline) 10 ml IVF PRN PRN PRN Reason: Saline Flush Last Admin: 07/12/18 03:44 Dose: 10 ml
[2018-07-13] MEDS ORDERED: Vancomycin HCl 1.25 GM in Sodium Chloride 0.9% 250 ML 250 ML IVPB SCH (21:00)
--- NOTE | 2018-07-13 23:33 | CON ---
DATE OF CONSULTATION: REFERRING DOCTOR: Terry Mcdaniel MD REASON FOR CONSULTATION: Evaluate the patient for endoscopic gastrostomy tube placement. HISTORY OF PRESENT ILLNESS: Ms. Maribel Zamorano is a very pleasant 87-year-old female who sustained a recent stroke. She has been seen by Dr. Dong Moya and also by Dr. Wahl for neurology evaluation. The patient is not able to swallow very well. 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 The patient's family in the room and they informed me that she has been basically on the full liquid diet over the last several months. Unable to swallow solid food. Oral intake has been poor and has been losing weight. 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 The patient is n.p.o. at the present time. I was asked to see the patient for endoscopic gastrostomy tube placement. When she had oral cancer a few years ago, apparently she had NG tube and she was feeding through the NG tube at that time. ALLERGIES: PENICILLIN. SOCIAL HISTORY: The patient is . Does not smoke or drink alcohol. MEDICAL ILLNESSES: 1. Right carotid stenosis, being followed up periodically with a Doppler study. 2. Oral cavity cancer, status post partial tongue resection, maxillary resection, and also radiation therapy. 3. Breast cancer, status post mastectomy more than 8 years ago. 4. Right wrist fracture. 5. Hysterectomy. 6. Appendectomy. MEDICATION LIST: Reviewed. REVIEW OF SYSTEMS: Basically generalized weakness, poor appetite, loss of weight, and also recent CVA. PHYSICAL EXAMINATION: GENERAL: She is a very fragile looking female, appears comfortable, but she is kind of sleepy but arousable. She does try to answer questions, but she is not verbalizing. Her face is slightly deformed with the upper lip and right side of the face. VITAL SIGNS: Afebrile, pulse is 85, blood pressure is 165/105. HEENT: Conjunctivae clear. NECK: Supple. CARDIOVASCULAR: First and second heart sounds are heard. LUNGS: Clear to auscultation. ABDOMEN: Abdomen is soft. Abdomen is nondistended. Abdomen is nontender. No organomegaly or masses. LABORATORY DATA: CBC: WBC 41405, hemoglobin 15.8, hematocrit 51.9, platelet count 355,000, polymorphs 85, lymphocytes 4, and monocytes 10. Serum chemistry, sodium 134, potassium 4.7, chloride 104, bicarb 20, BUN is 14, creatinine 0.66, glucose is 125, calcium is 9.5. BNP is 1483. Troponin is 0.176. CPK 1.9. She has been seen by Cardiology and does not appear that she has had any myocardial infarction. IMPRESSION AND PLAN: An 87-year-old female with recent cerebrovascular accident, previous history of oral cavity cancer surgery and chemoradiation. Operative history of vasectomy in the past. The patient needs long-term nutrition supplement. I had a long talk with the patient's and three of her daughters. I explained the procedure in detail. Because of history of radiation therapy in the past, it is possible that she could have tight stricture. There is some technical difficulties because of previous radiation. This was informed to the patient's family. The plan for the EGD and PEG tube placement tomorrow. I will hold the Lovenox from today and plan for EGD and PEG tube tomorrow. Job ID: [id number]
[2018-07-14] MEDS: Enalaprilat Dihydrate 1.25 MG/ML VIAL SLOW IVP SCH ×4 (01:02→20:58)
[2018-07-14] MEDS: Nitroglycerin 2% Ointment 1 INCH/1 GM Packet TOP SCH (05:21)
[2018-07-14] MEDS: Metoprolol Tartrate 5 MG/5 ML VIAL IVP SCH ×3 (05:21→23:48)
[2018-07-14] MEDS: Aspirin 300 MG Suppository PR SCH (09:23)
[2018-07-14] MEDS: Potassium Chloride 20 MEQ TAB PO SCH ×2 (09:23→16:16)
[2018-07-14] MEDS: Magnesium Oxide 400 MG TAB PO SCH ×2 (09:24→23:48)
[2018-07-14] MEDS: Famotidine/PF 20 mg/2ml Vial SLOW IVP SCH ×2 (10:08→23:48)
[2018-07-14] MEDS ORDERED: EPINEPHrine 1 MG/10 ML Abboject SYRINGE ONE (11:11)
[2018-07-14] MEDS ORDERED: Midazolam HCl 2 mg/2 ml Vial ONE (11:43)
[2018-07-14] MEDS ORDERED: Ondansetron HCl/PF 4 MG/2 ML Vial IVP PRN (12:22)
[2018-07-14] MEDS ORDERED: PROPOFOL 200 MG/20 ML VIAL ONE (12:56)
--- NOTE | 2018-07-14 17:46 | PDOC.PN ---
- Subjective Encounter Start Date: 07/14/18 Encounter Start Time: 09:00 Subjective: pt up in bed no complains - Objective Resuscitation Status - Order Detail: 07/10/18 14:58 Resuscitation Status Routine Resuscitation Status: PRTL: Chem only Discussed with: d/w and daughter at bedside Vital Signs & Weight: Vital Signs (12 hours) Temp Pulse Resp BP BP Pulse Ox 07/14/18 16:00 97.6 F 97 17 151/98 H 98 07/14/18 13:20 160/101 H 07/14/18 12:45 97.7 F 80 18 146/102 H 96 07/14/18 08:00 97.5 F L 84 17 154/101 H 99 Weight Admit Weight 127 lb Weight 127 lb I&O: 07/13/18 07/14/18 07/15/18 06:59 06:59 06:59 Intake Total 416 4100 Output Total 325 400 Balance 91 3700 Result Diagrams: 07/12/18 08:40 07/12/18 08:40 Phys Exam - Physical Examination Neck: no nodes, no JVD, supple, full ROM Respiratory: no wheezing, no rales, no rhonchi, wheezing present, clear to auscultation bilateral Cardiovascular: RRR, no significant murmur, no rub, gallop, irregular Gastrointestinal: soft, non-tender, no distention, positive bowel sounds Musculoskeletal: no edema, pulses present, edema present Dx/Plan (1) CVA (cerebral vascular accident) Code(s): I63.9 - CEREBRAL INFARCTION, UNSPECIFIED Status: Acute Qualifiers: Laterality of affected vessel: right Comment: right cerebellar cva with brainstem infarct (2) Sepsis Code(s): A41.9 - SEPSIS, UNSPECIFIED ORGANISM Status: Acute Qualifiers: Sepsis type: sepsis due to unspecified organism Qualified Code(s): A41.9 - Sepsis, unspecified organism (3) DVT (deep venous thrombosis) Code(s): I82.409 - ACUTE EMBOLISM AND THOMBOS UNSP DEEP VN UNSP LOWER EXTREMITY Status: Acute Qualifiers: DVT location: lower extremity Affected thrombotic vein of extremity: popliteal Chronicity: acute Laterality: right Qualified Code(s): I82.431 - Acute embolism and thrombosis of right popliteal vein (4) Acute CT Code(s): I21.9 - ACUTE MYOCARDIAL INFARCTION, UNSPECIFIED Status: Suspected Qualifiers: Myocardial infarction type: non-ST elevation myocardial infarction Qualified Code(s): I21.4 - Non-ST elevation (NSTEMI) myocardial infarction (5) NSTEMI (non-ST elevated myocardial infarction) Code(s): I21.4 - NON-ST ELEVATION (NSTEMI) MYOCARDIAL INFARCTION Status: Acute - Plan pt going for peg tube placement today -: will ask gi if ok to restart AC -: no intervention per CV surg -: will need rehab * . Review of Systems - Review of Systems Respiratory: negative: Cough, Dry, Shortness of Breath, Hemoptysis, SOB with Excertion, Pleuritic Pain, Sputum, Wheezing Cardiovascular: negative: chest pain, palpitations, orthopnea, paroxysmal nocturnal dyspnea, edema, light headedness, other Gastrointestinal: negative: Nausea, Vomiting, Abdominal Pain, Diarrhea, Constipation, Melena, Hematochezia, Other - Medications/Allergies Allergies/Adverse Reactions: Allergies Allergy/AdvReac Type Severity Reaction Status Date / Time Penicillins Allergy Severe Anaphylaxis Verified 07/13/16 19:36 Medications: Current Medications Acetaminophen (Tylenol) 650 mg PO Q4H PRN PRN Reason: Headache/Fever/Mild Pain (1-3) Acetaminophen (Tylenol) 650 mg [place] Q4H PRN PRN Reason: Headache/Fever/Mild Pain (1-3) Last Admin: 07/14/18 16:56 Dose: 650 mg Aspirin (Aspirin) 300 mg [place] DAILY [facility] Last Admin: 07/14/18 09:23 Dose: Not Given Enalaprilat (Vasotec) 1.25 mg SLOW IVP Q6HR [facility] Last Admin: 07/14/18 13:20 Dose: 1.25 mg Famotidine (Pepcid) 20 mg SLOW IVP Q12HR [facility] Last Admin: 07/14/18 10:08 Dose: 20 mg Guaifenesin/Dextromethorphan (Robitussin Dm) 15 ml PO Q4H PRN PRN Reason: Cough Levofloxacin 500 mg/ Device 100 mls @ 100 mls/hr IVPB 1600 [facility] Last Admin: 07/14/18 16:56 Dose: 100 mls Magnesium Oxide (Magnesium Oxide) 400 mg PO BID [facility] Last Admin: 07/14/18 09:24 Dose: Not Given Metoprolol Tartrate (Lopressor) 5 mg IVP Q8H [facility] Last Admin: 07/14/18 13:21 Dose: 5 mg Miscellaneous Medication (Pharmacy To Dose) 1 each IVPB PRN PRN PRN Reason: Pharmacy to dose Ondansetron HCl (Zofran) 4 mg IVP Q6H PRN PRN Reason: Nausea/Vomiting Last Admin: 07/11/18 23:42 Dose: 4 mg Potassium Chloride (K-Dur) 40 meq PO BID-[facility] Last Admin: 07/14/18 16:16 Dose: Not Given Senna/Docusate Sodium (Senokot S) 2 tab PO BID PRN PRN Reason: Constipation Sodium Chloride (Flush - Normal Saline) 10 ml IVF PRN PRN PRN Reason: Saline Flush Last Admin: 07/14/18 10:08 Dose: 10 ml
[2018-07-14] MEDS ORDERED: Pancrelipase DR 12000 1 CAP FS PRN (17:53)
[2018-07-14] MEDS ORDERED: Sodium Bicarbonate Tab 325 MG TAB PER TUBE PRN (17:53)
--- NOTE | 2018-07-14 20:17 | OP ---
DATE OF PROCEDURE: 07/14/2018 PROCEDURE: Esophagogastroduodenoscopy with endoscopic gastrostomy tube placement. PREOPERATIVE DIAGNOSES: Recent cerebrovascular accident, dysphagia, weight loss. POSTOPERATIVE DIAGNOSES: 1. No esophageal obstruction seen. 2. Diffuse gastritis. 3. Normal duodenum. DESCRIPTION OF PROCEDURE: The patient was placed on her back and was given sedation by Anesthesia Department. The patient was on scheduled antibiotics and no further antibiotic had given today. A Pentax video gastroscope under direct vision passed down the oropharynx. The patient had a thick mucus plug in the throat and it was removed with suction. The scope was advanced into the stomach without difficulty. No definite esophageal stricture seen. Scope was withdrawn with some difficulty. The patient had diffuse gastritis. Mucosa markedly hyperemic and edematous. In the duodenum, no pathology seen. The G-tube site was blocked while applying finger pressure in the abdominal wall. The site was cleaned and surgically prepped. The site was anesthetized with 1% Xylocaine infiltration. Over the site, a 16 Angiocath was advanced into the stomach. Through the Angiocath, the guidewire was advanced into the stomach. This was grasped with polypectomy snare and pulled out of the mouth. To end of the guidewire, protruding outside the mouth, gastrostomy tube was connected and the wire was pulled back retrograde and the tube left in place. The patient rescoped again and no complication. The stomach was decompressed, and the scope was removed. RECOMMENDATION: N.p.o. until 6 p.m. We will start tube feeding at 6 p.m. today. Job ID: [id number] [facility]
[2018-07-14 20:34] LABS: Vancomycin, Trough 7.9 ug/mL
[2018-07-14] MEDS: Acetaminophen 325 MG TAB PO PRN (23:48)
[2018-07-15] MEDS: Enalaprilat Dihydrate 1.25 MG/ML VIAL SLOW IVP SCH ×3 (00:10→14:11)
[2018-07-15] MEDS: Metoprolol Tartrate 5 MG/5 ML VIAL IVP SCH (05:07)
[2018-07-15] MEDS: Acetaminophen 325 MG TAB PO PRN (05:28)
[2018-07-15] MEDS ORDERED: Enoxaparin Sodium 40 MG/0.4 ML SYRINGE SC SCH ×3 (09:00→09:53)
[2018-07-15] MEDS ORDERED: Sodium Chloride 0.9% 1,000 ML IV SCH (09:15)
[2018-07-15] MEDS ORDERED: Sodium Chloride 0.9% 500 ML IV SCH (09:30)
--- NOTE | 2018-07-15 10:04 | PRG ---
DATE OF SERVICE: 07/15/2018 SUBJECTIVE: Ms. Maribel Zamorano is a very pleasant 87-year-old female with recent CVA, dysphagia. The patient underwent EGD and PEG tube placement yesterday. She is doing well on the tube feeding. The G-tube site appears healthy and the bumper was loosened up. Abdomen is soft and nontender. RECOMMENDATIONS: Continue tube feeding. We will sign off from today. If any problems, please call me back. Job ID: [id number]
[2018-07-15] MEDS: Magnesium Oxide 400 MG TAB PO SCH (11:10)
[2018-07-15] MEDS: Potassium Chloride 20 MEQ TAB PO SCH (11:11)
[2018-07-15] MEDS: Aspirin 300 MG Suppository PR SCH (11:11)
[2018-07-15] MEDS: Famotidine/PF 20 mg/2ml Vial SLOW IVP SCH (11:11)
[2018-07-15 11:18] LABS: #Lymphocytes 0.4 thou/uL (1.20-3.40); #Monocytes 0.9 thou/uL (0.11-0.59); #Neutrophils 10.9 thou/uL (1.40-6.50); %Basophils 0.2 % (0.0-1.0); %Lymphocytes 3.5 % (21.0-51.0); %Monocytes 7.2 % (0.0-10.0); %Neutrophils 89.1 % (42.0-75.0); Hemoglobin 15.9 g/dL (12.0-16.0); Mean Corpuscular HGB CONC 31.5 g/dL (32.0-36.0); Mean Corpuscular Hemoglobin 29.4 pg (27.0-31.0); Mean Corpuscular Volume 93.1 fL (78.0-98.0); Mean Platelet Volume 7.8 fL (7.4-10.4); Platelet Count 354 thou/uL (130-400); RBC Distribution Width 11.8 % (11.5-14.5); Red Blood Cell (RBC) Count 5.41 mill/uL (4.20-5.40); White Blood Cell (WBC) Count 12.2 thou/uL (4.8-10.8)
[2018-07-15 11:44] LABS: Anion Gap 15 mmol/L (10-20); BUN (Urea Nitrogen) 33 mg/dL (9.8-20.1); Calc. Creatinine Clearance 42 mL/min (70-130); Calcium 9.9 mg/dL (7.8-10.44); Carbon Dioxide 20 mmol/L (23-31); Chloride 106 mmol/L (98-107); Estimated GFR-MDRD 63; Glucose 136 mg/dL (83-110); Potassium 4.4 mmol/L (3.5-5.1); Sodium 137 mmol/L (136-145)
[2018-07-15 12:01] VITALS: TEMP 97.3
[2018-07-15 14:16] VITALS: BP 171/102
[2018-07-15] MEDS ORDERED: Enoxaparin Sodium 60 MG/0.6 ML SYRINGE SC SCH (21:00)
[2018-07-15] MEDS ORDERED: Metoprolol Tartrate 50 MG TAB PO SCH (21:00)
--- NOTE | 2018-07-16 10:43 | EKG ---
Test Reason : ER INDICATION Blood Pressure : / mmHG Vent. Rate : 107 BPM Atrial Rate : 119 BPM P-R Int : 000 ms QRS Dur : 102 ms QT Int : 470 ms P-R-T Axes : 000 086 246 degrees QTc Int : 627 ms Atrial fibrillation with rapid ventricular response with premature ventricular or aberrantly conducte d complexes Anteroseptal infarct , age undetermined Prolonged QT Abnormal ECG Confirmed by CARMELO CARRASCO DO ([id number]), social media editor KAITLYNN YU ([id number]) on 07/16/2018 10:42:42 AM Referred By: Confirmed By:CARMELO CARRASCO DO
--- NOTE | 2018-07-16 11:14 | DIS ---
DATE OF ADMISSION: 07/10/2018 DATE OF DISCHARGE: 07/15/2018 SUMMARY: DATE OF : 07/15/2018. TIME OF : At 3:30. HOSPITAL COURSE: The patient is a very pleasant 87-year-old female, who initially came into the hospital on the July 10 with possible sepsis, UTI, and aspiration pneumonia. Also, there was a concern for CVA and also high beats of nonsustained ventricular tachycardia. The patient initially was treated with broad-spectrum antibiotics. Also, she was found to be in atrial fibrillation with rapid ventricular response that was controlled. She had lower extremity Dopplers, which indicated that she did have an acute deep vein thrombosis. The patient on the following day, had an echocardiogram that indicated an EF of 20% to 25% with [id number] tricuspid regurgitation and moderate mitral regurgitation. She also had a large pleural effusion. The patient also had an MRI of brain, concerns for possible stroke, which indicated a moderate size acute right PICA distribution infarct. The patient at this time was treated fully for her deep vein thrombosis. Neurology and Cardiology were consulted on this patient. Due to the patient's inability to swallow at this time, she underwent a PEG tube placement on 07/14; however, unfortunately postoperatively on 07/15, the patient became very somnolent, was found to have no pulse and at that time given the fact that she was only a chemical code, a code blue was called. The patient was given some epinephrine. I was present at this time. I did speak with the patient's family in regard to the overall poor prognosis given her continuous asystole even after she was given epinephrine. At this time, the patient's family decided to call off the code given that her overall prognosis would be very poor. The patient's time of was 1530 hours. The patient's family did not want to do an autopsy given her multiple comorbidities. DISCHARGE DIAGNOSES: Her discharge diagnosis will be as of the following; 1. Acute cerebrovascular accident, right cerebellar infarct. 2. Sepsis due to aspiration. 3. Deep venous thrombosis, acute. 4. Non-ST elevation myocardial infarction. 5. Atrial fibrillation. Again, condolences were given to the patient's family and the patient's . Job ID: [id number]
== END 2018-07-15 19:01 | disposition expired | DRG 871 ==
LOC: ERS 13:33 → ERHOLD 14:12 → 2NO 07-11 15:30 → 2SE 07-11 18:46
PROVIDERS: ADMIT Internal Medicine; ATTEND Internal Medicine
PROC: 0DH68UZ Insertion of Feeding Device into Stomach, Via Natural or Artificial Opening Endoscopic (ICD-10-PCS; principal; 2018-07-10)
DX: A41.9 Sepsis, unspecified organism (principal); I63.9 Cerebral infarction, unspecified; J69.0 Pneumonitis due to inhalation of food and vomit; I21.4 Non-ST elevation (NSTEMI) myocardial infarction; I50.41 Acute combined systolic (congestive) and diastolic (congestive) heart failure; I47.2 Ventricular tachycardia; I82.431 Acute embolism and thrombosis of right popliteal vein; N30.00 Acute cystitis without hematuria; E87.6 Hypokalemia; I48.91 Unspecified atrial fibrillation; Z85.819 Personal history of malignant neoplasm of unspecified site of lip, oral cavity, and pharynx; I65.21 Occlusion and stenosis of right carotid artery; Z85.3 Personal history of malignant neoplasm of breast; Z90.12 Acquired absence of left breast and nipple; I10 Essential (primary) hypertension; E78.5 Hyperlipidemia, unspecified; Z88.0 Allergy status to penicillin; Z66 Do not resuscitate; K29.70 Gastritis, unspecified, without bleeding; R13.12 Dysphagia, oropharyngeal phase; I48.0 Paroxysmal atrial fibrillation; T68.XXXA Hypothermia, initial encounter
CPT/HCPCS: 36415; 36416; 70551; 80048; 80061; 80202; 82553; 83605; 83735; 83880; 84484; 85025; 85610; 85730; 87086; 93005; 93306; 94660; 96365; 96366; 96367; 96375; J0171; J1650; J1956; J2250; J2405; J2704; J3370; J3475; J7050; S0028